=== PATIENT | male | born 1975 | race Caucasian/White ===

== ENCOUNTER 2025-02-06 19:36 | Inpatient (IN) | payer OTHER ==
[2025-02-06 19:48] VITALS: BMI 29.8
[2025-02-06 21:52] LABS: ABSOLUTE IMMATURE GRANULOCYTES 0.02 x10^3/uL (0.0-0.031); BASOPHILS # 0.07 x10^3/uL (0.01-0.08); EOSINOPHIL % 2.9 % (0.8-7.0); EOSINOPHILS # 0.23 x10^3/uL (0.04-0.54); MCHC 32.2 g/dl (32.3-36.5); MEAN CELL VOLUME 95.0 fl (79.0-92.2); MEAN PLT VOLUME 10.1 fl (9.4-12.4); MONOCYTE # 0.56 x10^3/uL (0.30-0.82); MONOCYTE % 7.2 % (5.3-12.2); RDW 13.0 % (12.1-15.9)
[2025-02-06 21:58] LABS: GLUCOSE,RANDOM 105 mg/dL (74-106)
[2025-02-06 21:59] LABS: TOT PROT 6.1 g/dl (6.4-8.2)
[2025-02-06 22:00] LABS: CO2 17 mmol/L (21-32)
[2025-02-06 22:01] LABS: ALK PHOS 99 U/L (40-150)
[2025-02-06 22:04] LABS: CREATININE 8.51 mg/dL (0.55-1.3); SGOT/AST 25 U/L (5-34); SGPT/ALT 21 U/L (0-55)
[2025-02-07 03:29] LABS: IRON SERUM 55 ug/dL (50-175)
[2025-02-07] MEDS: SODIUM CHLORIDE 0.9% 500 ML INFUS.BAG IV ONE (05:43)
[2025-02-07] MEDS: hydrALAZINE HCL 25 MG TABLET (FP) PO SCH ×2 (06:34→15:37)
[2025-02-07 08:24] LABS: ABSOLUTE IMMATURE GRANULOCYTES 0.03 x10^3/uL (0.0-0.031); BASOPHILS # 0.06 x10^3/uL (0.01-0.08); EOSINOPHIL % 3.6 % (0.8-7.0); EOSINOPHILS # 0.25 x10^3/uL (0.04-0.54); MCHC 32.4 g/dl (32.3-36.5); MEAN CELL VOLUME 93.9 fl (79.0-92.2); MEAN PLT VOLUME 9.9 fl (9.4-12.4); MONOCYTE # 0.54 x10^3/uL (0.30-0.82); MONOCYTE % 7.7 % (5.3-12.2); RDW 12.9 % (12.1-15.9)
[2025-02-07 09:09] LABS: GLUCOSE,RANDOM 91 mg/dL (74-106)
[2025-02-07 09:10] LABS: TOT PROT 5.2 g/dl (6.4-8.2)
[2025-02-07 09:11] LABS: CO2 21 mmol/L (21-32)
[2025-02-07 09:12] LABS: ALK PHOS 89 U/L (40-150)
[2025-02-07 09:15] LABS: SGOT/AST 20 U/L (5-34); SGPT/ALT 17 U/L (0-55)
[2025-02-07 09:23] LABS: CREATININE 8.44 mg/dL (0.55-1.3)
[2025-02-07] MEDS: FUROSEMIDE 40 MG TABLET (FP) PO SCH (10:45)
[2025-02-07] MEDS: amLODIPine BESYLATE 10 MG TABLET (FP) PO SCH (10:45)
[2025-02-07] MEDS: LOSARTAN POTASSIUM 50 MG TABLET PO SCH (10:45)
[2025-02-07] MEDS: FAMOTIDINE 20 MG TABLET PO SCH (10:45)
[2025-02-07] MEDS ORDERED: LIDOCAINE HCL 1%, 10 MG/ML (20ML VIAL) ONE (12:19)
[2025-02-07] MEDS ORDERED: MIDAZOLAM HCL 2 MG/2 ML SINGLE DOSE VIAL ONE (12:45)
[2025-02-07] MEDS ORDERED: SODIUM CHLORIDE 1,000 ML IV SCH ×2 (12:45→13:31)
[2025-02-07] MEDS ORDERED: LIDOCAINE HCL/PF 2% SDV 5ML VIAL ONE (12:45)
[2025-02-07] MEDS ORDERED: PROPOFOL 20 ML ONE (12:45)
[2025-02-07] MEDS ORDERED: ONDANSETRON 4 MG/2 ML VIAL IVPUSH PRN ×2 (12:45→13:31)
[2025-02-07] MEDS: LIDOCAINE HCL 1%, 10 MG/ML (20ML VIAL) NR ONE ×2 (13:06)
[2025-02-07] MEDS ORDERED: ACETAMINOPHEN 325 MG TABLET (FP) PO PRN (13:45)
[2025-02-07] MEDS ORDERED: SODIUM CHLORIDE 250 ML IV PRN (16:42)
[2025-02-08 07:35] LABS: MCHC 31.8 g/dl (32.3-36.5); MEAN CELL VOLUME 94.4 fl (79.0-92.2); MEAN PLT VOLUME 10.4 fl (9.4-12.4); RDW 12.9 % (12.1-15.9)
[2025-02-08 09:34] LABS: GLUCOSE,RANDOM 129 mg/dL (74-106)
[2025-02-08 09:35] LABS: CO2 20 mmol/L (21-32); TOT PROT 5.4 g/dl (6.4-8.2)
[2025-02-08 09:37] LABS: ALK PHOS 87 U/L (40-150)
[2025-02-08 09:40] LABS: SGOT/AST 21 U/L (5-34); SGPT/ALT 16 U/L (0-55)
[2025-02-08] MEDS: FUROSEMIDE 40 MG TABLET (FP) PO SCH (09:56)
[2025-02-08] MEDS: FAMOTIDINE 10 MG TABLET PO SCH (09:56)
[2025-02-08] MEDS: LOSARTAN POTASSIUM 50 MG TABLET PO SCH (09:57)
[2025-02-08] MEDS: amLODIPine BESYLATE 10 MG TABLET (FP) PO SCH (09:57)
[2025-02-08 10:02] LABS: HCV DIAGNOSTIC IN-HOUSE W/RFLX NON-REACTIVE (NONREACTIVE)
[2025-02-08 10:11] LABS: CREATININE 8.44 mg/dL (0.55-1.3)
[2025-02-09 08:20] LABS: ABSOLUTE IMMATURE GRANULOCYTES 0.01 x10^3/uL (0.0-0.031); BASOPHILS # 0.06 x10^3/uL (0.01-0.08); EOSINOPHIL % 3.2 % (0.8-7.0); EOSINOPHILS # 0.20 x10^3/uL (0.04-0.54); MCHC 32.8 g/dl (32.3-36.5); MEAN CELL VOLUME 92.5 fl (79.0-92.2); MEAN PLT VOLUME 9.9 fl (9.4-12.4); MONOCYTE # 0.65 x10^3/uL (0.30-0.82); MONOCYTE % 10.3 % (5.3-12.2); RDW 13.6 % (12.1-15.9)
[2025-02-09 08:44] LABS: GLUCOSE,RANDOM 104.0 mg/dL (74-106); TOT PROT 5.7 g/dl (6.4-8.2)
[2025-02-09 08:45] LABS: CO2 25.0 mmol/L (21-32)
[2025-02-09 08:47] LABS: ALK PHOS 92.0 U/L (40-150)
[2025-02-09 08:49] LABS: SGPT/ALT 11.0 U/L (0-55)
[2025-02-09 08:50] LABS: SGOT/AST 21.0 U/L (5-34)
[2025-02-09 08:52] LABS: CREATININE 6.73 mg/dL (0.55-1.3)
[2025-02-09] MEDS ORDERED: SODIUM CHLORIDE 250 ML IV PRN (11:12)
[2025-02-09] MEDS: HEPARIN NA (PORCINE) 5,000 UNITS/ML 1ML VIAL IVPUSH ONE (12:05)
[2025-02-09] MEDS: EPOETIN ALFA-EPBX 10,000 UNIT/ML VIAL SQ ONE (13:14)
[2025-02-10 08:38] LABS: ABSOLUTE IMMATURE GRANULOCYTES 0.02 x10^3/uL (0.0-0.031); BASOPHILS # 0.09 x10^3/uL (0.01-0.08); EOSINOPHIL % 2.1 % (0.8-7.0); EOSINOPHILS # 0.15 x10^3/uL (0.04-0.54); MCHC 31.3 g/dl (32.3-36.5); MEAN CELL VOLUME 95.3 fl (79.0-92.2); MEAN PLT VOLUME 10.2 fl (9.4-12.4); MONOCYTE # 0.71 x10^3/uL (0.30-0.82); MONOCYTE % 9.9 % (5.3-12.2); RDW 13.7 % (12.1-15.9)
[2025-02-10 09:05] LABS: GLUCOSE,RANDOM 112.0 mg/dL (74-106)
[2025-02-10 09:06] LABS: TOT PROT 5.9 g/dl (6.4-8.2)
[2025-02-10 09:07] LABS: CO2 24.0 mmol/L (21-32)
[2025-02-10 09:08] LABS: ALK PHOS 94.0 U/L (40-150)
[2025-02-10 09:11] LABS: CREATININE 5.43 mg/dL (0.55-1.3); SGOT/AST 24.0 U/L (5-34); SGPT/ALT 12.0 U/L (0-55)
[2025-02-10 09:33] VITALS: BP 145/62; PULSE 84; RESP 18; TEMP 98.8
[2025-02-10] MEDS: FUROSEMIDE 40 MG/4 ML INJECTABLE VIAL IVPUSH ONE (15:56)
== END 2025-02-10 15:05 | disposition home or self-care (01) | DRG 470 ==
LOC: JER 19:36 → JERBED 20:33 → J6S 02-07 04:38
PROVIDERS: ADMIT Internal Medicine; ATTEND Internal Medicine
PROC: 05HM33Z Insertion of Infusion Device into Right Internal Jugular Vein, Percutaneous Approach (ICD-10-PCS; principal; 2025-02-08)
PROC: 5A1D70Z Performance of Urinary Filtration, Intermittent, Less than 6 Hours Per Day (ICD-10-PCS; 2025-02-09)
DX: I12.0 Hypertensive chronic kidney disease with stage 5 chronic kidney disease or end stage renal disease (principal); N18.6 End stage renal disease; E11.22 Type 2 diabetes mellitus with diabetic chronic kidney disease; E83.41 Hypermagnesemia; D63.1 Anemia in chronic kidney disease; Z99.2 Dependence on renal dialysis
CPT/HCPCS: 36415; 36430; 71045-TC-FY; 76000-TC-FY; 80053; 82728; 82962; 83540; 83550; 83735; 84100; 85025; 85027; 85730; 86704; 86705; 86803; 86850; 86900; 86901; 86922; 87340; 87517; 93005; 93010; 94760; 99285-25; C1750; J1644; P9038; P9058; Q5106

== ENCOUNTER 2025-03-14 06:14 | Day surgery (SDC) | payer OTHER ==
[2025-03-11 11:43] VITALS: BMI 25.8
[2025-03-14] MEDS ORDERED: ONDANSETRON 4 MG/2 ML VIAL IVPUSH PRN (09:01)
[2025-03-14] MEDS ORDERED: SODIUM CHLORIDE 1,000 ML IV SCH (09:15)
[2025-03-14] MEDS ORDERED: ROPIVACAINE HCL 0.5% 30ML VIAL ONE (10:17)
[2025-03-14] MEDS ORDERED: MIDAZOLAM HCL 2 MG/2 ML SINGLE DOSE VIAL ONE (10:20)
[2025-03-14] MEDS ORDERED: LIDOCAINE HCL/PF 2% SDV 5ML VIAL ONE (10:23)
[2025-03-14] MEDS ORDERED: LIDOCAINE HCL/PF 1% SDV 5ML VIAL ONE (10:23)
[2025-03-14] MEDS ORDERED: LIDOCAINE HCL 1%, 10 MG/ML (20ML VIAL) ONE (10:33)
[2025-03-14] MEDS ORDERED: ONDANSETRON 4 MG/2 ML VIAL ONE (11:11)
[2025-03-14] MEDS: LIDOCAINE HCL 1%, 10 MG/ML (50 mL VIAL) INF ONE (11:17)
[2025-03-14 15:22] VITALS: RESP 18
[2025-03-14 15:45] VITALS: BP 128/65; PULSE 65; TEMP 97.7
== END 2025-03-14 15:55 | disposition home or self-care (01) ==
LOC: JASU-SURG 06:14
PROVIDERS: ATTEND Surgery
PROC: 03180ZD Bypass Left Brachial Artery to Upper Arm Vein, Open Approach (ICD-10-PCS; principal; 2025-03-14 10:00)
DX: I12.0 Hypertensive chronic kidney disease with stage 5 chronic kidney disease or end stage renal disease (principal); N18.6 End stage renal disease; Z99.2 Dependence on renal dialysis
CPT/HCPCS: 36415; 73090-TC-LT-FY; 84132; 93005; 93010; 94760